=== PATIENT | female | born 1940 ===

== ENCOUNTER 2016-12-12 16:20 | Outpatient (CLI) ==
[2016-12-12 17:00] LABS: PROTHROMBIN TIME 19.5 SEC (9.3-11.0)
== END 2016-12-12 16:21 | disposition home or self-care (01) ==
LOC: NONPT 16:20
PROVIDERS: ATTEND Family Medicine
DX: Z51.81 Encounter for therapeutic drug level monitoring (principal); I69.354 Hemiplegia and hemiparesis following cerebral infarction affecting left non-dominant side
CPT/HCPCS: 85610